=== PATIENT | female | born 1975 | race Hispanic/Latino ===

== ENCOUNTER 2016-12-22 12:53 | Emergency (ER) | payer OTHER, MEDICAID ==
[2016-12-22 13:04] VITALS: BMI 25.2
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
[2016-12-22 13:50] VITALS: TEMP 98.2
[2016-12-22 14:07] VITALS: BP 152/100; PULSE 72; RESP 18
[2016-12-22 16:02] VITALS: O2SAT 97
== END 2016-12-22 14:07 | disposition home or self-care (01) ==
LOC: C.ER 12:53
DX: Z04.1 Encounter for examination and observation following transport accident (principal)